=== PATIENT | male | born 1995 | race African-American/Black ===

== ENCOUNTER 2023-02-03 12:41 | Observation (INO) ==
--- NOTE | 2023-02-03 14:30 | DR.ABDMALE ---
HPI Time seen Time Seen by Provider: 02/03/23 14:30 PCP Primary Care Physician: nfd Complaint Chief Complaint:: Pt c/o "I feel like my appendix is about to bust". C/o RLQ pain started 0500 this AM, intermittently stops and restarts but now "is not stopping". Pt states he can't touch, hurts to sit, stand, "the worse thing I've ever felt". LBM this AM, denies urinary issues, pt c/o nausea but denies v/d COVID-19 Coronavirus risk:travel/contact w/high risk person: No Has patient experienced Coronavirus symptoms: No Source History provided by:: Patient Mode of arrival Mode of Arrival: Ambulatory Timing Onset of Chief Complaint: 02/03/23 PMH PMH Past Medical History: No Past Surgical History: No Family History History of Family Medical Conditions: Yes Family Medical History: Hypertension Social History Does patient currently use any type of tobacco product: Yes Have you used tobacco products in the last 12 months: Yes Type of Tobacco Use: Cigarettes Does any household member use tobacco: No Alcohol Use: None Do you use any recreational Drugs:: No Lives With: Family Lives Where: Home Travel Risk Coronavirus risk:travel/contact w/high risk person: No Has patient experienced Coronavirus symptoms: No Infectious screening In the last 2 months have you had wt loss of >10#?: NO Have you had fever, night sweats or hemotysis?: No Have you traveled outside the country in the last 6 months?: No Isolation: Standard PE Vital Signs Vital Signs: Temp Pulse Resp BP Pulse Ox O2 Del Method 02/03/23 12:42 98.4 F 87 20 123/77 97 Room Air ROR Labs Reviewed 02/03/23 14:16 02/03/23 14:16 Laboratory: WBC 17.3 X10^3/uL (3.6-10.0) H 02/03/23 14:16 RBC 5.49 X10^6/uL (4.7-6.0) 02/03/23 14:16 Hgb 14.1 g/dL (13.5-18.0) 02/03/23 14:16 Hct 44.3 % (42.0-54.0) 02/03/23 14:16 MCV 80.6 fL (80.0-100.0) 02/03/23 14:16 MCH 25.8 pg (27.0-34.0) L 02/03/23 14:16 MCHC 31.9 g/dL (33.0-35.0) L 02/03/23 14:16 RDW 14.2 % (11.6-16.5) 02/03/23 14:16 Plt Count 385 X10^3/uL (150.0-450.0) 02/03/23 14:16 MPV 7.5 fL (7.4-11.0) 02/03/23 14:16 Neut % (Auto) 82.7 % (42.0-75.0) H 02/03/23 14:16 Lymph % (Auto) 10.3 % (21.0-51.0) L 02/03/23 14:16 Norman % (Auto) 5.6 % (0.0-13.0) 02/03/23 14:16 Eos % (Auto) 1.2 % (0.9-2.9) 02/03/23 14:16 Baso % (Auto) 0.2 % (0.2-1.0) 02/03/23 14:16 Neut # (Auto) 14.3 x10^3/uL (2.2-4.8) H 02/03/23 14:16 Lymph # (Auto) 1.8 X10^3/uL (1.3-2.9) 02/03/23 14:16 Norman # (Auto) 1.0 x10^3/uL (0.3-0.8) H 02/03/23 14:16 Eos # (Auto) 0.2 x10^3/uL (0.0-0.2) 02/03/23 14:16 Baso # (Auto) 0.0 X10^3/uL (0.0-0.1) 02/03/23 14:16 Absolute Nucleated RBC 0.0 /100WBC 02/03/23 14:16 Sodium 143 mmol/L (136-145) 02/03/23 14:16 Corrected Sodium TNP 02/03/23 14:16 Potassium 3.5 mmol/L (3.5-5.1) 02/03/23 14:16 Chloride 107 mmol/L (98-107) 02/03/23 14:16 Carbon Dioxide 29.8 mmol/L (21-32) 02/03/23 14:16 BUN 10 mg/dL (7-18) 02/03/23 14:16 Creatinine 0.97 mg/dL (0.70-1.30) 02/03/23 14:16 Est GFR (MDRD) Af Amer > 60 (>60) 02/03/23 14:16 Est GFR (MDRD) Non-Af > 60 (>60) 02/03/23 14:16 Glucose 94 mg/dL (65-99) 02/03/23 14:16 Calcium 8.0 mg/dL (8.5-10.1) L 02/03/23 14:16 Corrected Calcium TNP 02/03/23 14:16 Total Bilirubin 0.60 mg/dL (0.2-1.0) 02/03/23 14:16 AST 25 Units/L (15-37) 02/03/23 14:16 ALT 27 Units/L (12-78) 02/03/23 14:16 Alkaline Phosphatase 77 Units/L (46-116) 02/03/23 14:16 Total Protein 7.4 g/dL (6.4-8.2) 02/03/23 14:16 Albumin 3.8 g/dL (3.4-5.0) 02/03/23 14:16 Globulin 3.6 g/dL (2.5-4.5) 02/03/23 14:16 Albumin/Globulin Ratio 1.1 Ratio (1.1-2.1) 02/03/23 14:16 Amylase 45 Units/L (25-115) 02/03/23 14:16 Lipase 34 Units/L (16-77) 02/03/23 14:16 Specimen Type Clean catch urine 02/03/23 14:33 Urine Color Yellow (YELLOW) 02/03/23 14:33 Urine Appearance Slightly hazy (CLEAR) 02/03/23 14:33 Urine pH 5.0 (5.0 - 8.0) 02/03/23 14:33 Ur Specific [place] 1.025 (1.000-1.030) 02/03/23 14:33 Urine Protein 1+ (NEGATIVE) 02/03/23 14:33 Urine Glucose (UA) Negative (NEGATIVE) 02/03/23 14:33 Urine Ketones Negative (NEGATIVE) 02/03/23 14:33 Urine Blood 1+ (NEGATIVE) 02/03/23 14:33 Urine Nitrite Negative (NEGATIVE) 02/03/23 14:33 Urine Bilirubin Negative (NEGATIVE) 02/03/23 14:33 Urine Urobilinogen Normal (NORMAL) 02/03/23 14:33 Ur Leukocyte Esterase 2+ (NEGATIVE) 02/03/23 14:33 Urine RBC 3-5 /HPF (0-3) A 02/03/23 14:33 Urine WBC 30-50 /HPF (0-5) A 02/03/23 14:33 Ur Squamous Epith Cells Negative /HPF (NEGATIVE) 02/03/23 14:33 Urine Bacteria 1+ /HPF (NEGATIVE) 02/03/23 14:33 Urine Mucus Many /HPF (NEGATIVE) 02/03/23 14:33 Ur Culture Indicated? Yes/culture set up 02/03/23 14:33 Opioid Opioid Risk Tool Age (Naif box if 16-45): Yes History of Preadolescent Sexual Abuse: No Total: 1 Total Score Risk Category: Low Risk Copyright: Wili KIRBY predicting aberrant behaviors Discharge Plan Discharge Plan Patient Disposition: 01 HOME, SELF-CARE Condition: Stable Prescriptions: No Action NK amoxicillin 875 mg tablet 875 mg PO BID Qty: 20 0RF diclofenac potassium 50 mg tablet 50 mg PO TID PRN (Reason: pain) Qty: 20 0RF sulfamethoxazole-trimethoprim [Bactrim DS] 800-160 mg tablet 1 tab PO BID Qty: 20 0RF Health Concerns: Post Hospitalization: new medications and changes needed to prevent readmission or further decline. Pt educated and given instructions on all concerns. Plan of Treatment: Continue with present treatment and follow up plan. Pt is to keep follow up appointment as instructed and take medications as ordered. Follow ups/Referrals Follow ups/Referrals: NFD,None [Primary Care Provider] - 3 days Instructions Stand Alone Forms: Post Hospital Follow Up Care
[2023-02-03 14:48] LABS: BASOPHILS % (AUTO) 0.2 % (0.2-1.0); EOSINOPHILS # (AUTO) 0.2 x10^3/uL (0.0-0.2); EOSINOPHILS % (AUTO) 1.2 % (0.9-2.9); HEMATOCRIT 44.3 % (42.0-54.0); HEMOGLOBIN 14.1 g/dL (13.5-18.0); LYMPHOCYTES # (AUTO) 1.8 X10^3/uL (1.3-2.9); LYMPHOCYTES % (AUTO) 10.3 % (21.0-51.0); MEAN CORPUSCULAR HEMOGLOBIN 25.8 pg (27.0-34.0); MEAN CORPUSCULAR HGB CONC 31.9 g/dL (33.0-35.0); MEAN CORPUSCULAR VOLUME 80.6 fL (80.0-100.0); MEAN PLATELET VOLUME 7.5 fL (7.4-11.0); MONOCYTES % (AUTO) 5.6 % (0.0-13.0); NEUTROPHILS # (AUTO) 14.3 x10^3/uL (2.2-4.8); NEUTROPHILS % (AUTO) 82.7 % (42.0-75.0); PLATELET COUNT 385 X10^3/uL (150.0-450.0); RED BLOOD COUNT 5.49 X10^6/uL (4.7-6.0); RED CELL DISTRIBUTION WIDTH 14.2 % (11.6-16.5); WHITE BLOOD COUNT 17.3 X10^3/uL (3.6-10.0)
[2023-02-03 14:52] LABS: BILIRUBIN,URINE NEGATIVE (NEGATIVE); BLOOD/HEMOGLOBIN,URINE 1+ (NEGATIVE); GLUCOSE, URINE NEGATIVE (NEGATIVE); KETONES,URINE NEGATIVE (NEGATIVE); LEUKOCYTE ESTERASE ,URINE 2+ (NEGATIVE); NITRITES,URINE NEGATIVE (NEGATIVE); PROTEIN,URINE 1+ (NEGATIVE); UROBILINOGEN,URINE NORMAL (NORMAL)
[2023-02-03 14:59] LABS: ALANINE AMINOTRANSFERASE 27 Units/L (12-78); ALBUMIN 3.8 g/dL (3.4-5.0); ALKALINE PHOSPHATASE 77 Units/L (46-116); AMYLASE 45 Units/L (25-115); ASPARTATE AMINO TRANSFERASE 25 Units/L (15-37); BLOOD UREA NITROGEN 10 mg/dL (7-18); CARBON DIOXIDE 29.8 mmol/L (21-32); CHLORIDE 107 mmol/L (98-107); CREATININE 0.97 mg/dL (0.70-1.30); GLUCOSE 94 mg/dL (65-99); LIPASE 34 Units/L (16-77); POTASSIUM 3.5 mmol/L (3.5-5.1); SODIUM 143 mmol/L (136-145); TOTAL PROTEIN 7.4 g/dL (6.4-8.2); eGFR NON BLACK RACES > 60 (>60)
[2023-02-03 15:07] LABS: APPEARANCE,URINE SLIGHTLY HAZY (CLEAR); COLOR,URINE YELLOW (YELLOW); SQUAMOUS EPITHELIAL CELL,UR NEGATIVE /HPF (NEGATIVE)
[2023-02-03 15:08] LABS: BACTERIA,URINE 1+ /HPF (NEGATIVE)
--- NOTE | 2023-02-03 15:50 | CT ---
EXAM: CT ABDOMEN AND PELVIS WITHOUT INTRAVENOUS CONTRASTHISTORY: Pain.TECHNIQUE: Spiral axial CT images are obtained through the abdomen and pelvis without the administration of intravenous contrast. Additional coronal and sagittal reformatted images are reconstructed.DOSIMETRY: Total DLP 456.52 mGycm; CTDI 8.38 mGyCOMPARISON: None available.FINDINGS:GASTROINTESTINAL TRACT: There is no evidence for bowel herniation, bowel obstruction, colitis or diverticulitis. Evidence for acute appendicitis, marked by a dilated (1.3 cm diameter), thickwalled, fluid-filled appendix with periappendiceal streaky inflammatory change. Axial image 53-65; coronal image 27-34. No drainable fluid collection, free air, or abscess formation seen.GENITOURINARY SYSTEM: The kidneys are unremarkable. There is no ureteral calculus or stigmata of obstructive uropathy. The urinary bladder, seminal vesicles, prostate gland appear grossly unremarkable for a non-dedicated exam.CT ABDOMEN: The liver, spleen, pancreas, adrenal glands, gallbladder, aorta, and inferior vena cava are within normal limits for a noncontrast CT scan. There is no intra-abdominal or retroperitoneal lymphadenopathy, free fluid, or free air seen. There is an approximately 2 cm AP by 1.8 cm CC by 1.8 cm transverse supraumbilical midline incisional hernia (approximately 4.8 cm above the umbilicus), containing uncomplicated omental flap. Axial image 45; sagittal image 33.CT PELVIS: No pelvic sidewall or inguinal lymphadenopathy is seen. No inguinal herniation is noted. No free fluid or free air is seen.BONES AND JOINTS: The visualized bony structures are within normal limits.LUNG BASES: The lung bases are clear.IMPRESSION:1. Acute appendicitis, marked by a dilated (1.3 cm diameter), thickwalled, fluid-filled appendix with periappendiceal streaky inflammatory change. Axial image 53-65; coronal image 27-34.2. No drainable fluid collection, free air, or abscess formation seen.3. Approximately 2 cm AP by 1.8 cm CC by 1.8 cm transverse supraumbilical midline incisional hernia (approximately 4.8 cm above the umbilicus), containing uncomplicated omental flap. Axial image 45; sagittal image 33.4. No evidence for renal stone disease or obstructive uropathy.5. No evidence for acute appendicitis, bowel herniation/obstruction, colitis or diverticulitis seen.6. No free fluid, free air, mass lesions, or lymphadenopathy seen.THIS IS AN ELECTRONICALLY VERIFIED FINAL [id number]/03/2023 3:48 PM - Electronically signed by Daniel Mackenzie
[2023-02-03] MEDS ORDERED: ZOFRAN INJ 4 MG VIAL IVP ONE (16:35)
[2023-02-03] MEDS ORDERED: MORPHINE SULFATE INJ 4 MG IVP ONE (16:35)
[2023-02-03] MEDS ORDERED: ZOSYN VIAL 3.375 GRAMS 3.375 G in NS 100 ML IV 100 ML IV ONE (16:37)
[2023-02-03] MEDS ORDERED: MORPHINE SULFATE INJ 4 MG ONE (16:45)
[2023-02-03] MEDS ORDERED: ZOFRAN INJ 4 MG VIAL ONE (16:45)
[2023-02-03] MEDS ORDERED: NS 100 ML IV 100 ML ONE (16:45)
[2023-02-03] MEDS ORDERED: ZOSYN VIAL 3.375 GRAMS IV ONE (16:45)
[2023-02-03] MEDS ORDERED: LR 1,000 ML IV 0 ML IV ONE (16:47)
[2023-02-03] MEDS ORDERED: VERSED ONE (16:49)
[2023-02-03] MEDS: ZOFRAN INJ 4 MG VIAL ONE ×2 (16:50→17:24)
[2023-02-03] MEDS ORDERED: DIPRIVAN VIAL 20 ML ONE (16:50)
[2023-02-03] MEDS ORDERED: OFIRMEV IV 1000 MG VIAL 1,000 MG/100 ML VIAL IV ONE (16:50)
[2023-02-03] MEDS ORDERED: TORADOL 30 MG VIAL ONE (16:50)
[2023-02-03] MEDS ORDERED: ZEMURON 100 MG VIAL ONE (16:50)
[2023-02-03] MEDS ORDERED: FENTANYL VIAL INJ 100 mcg ONE ×2 (16:50→17:44)
[2023-02-03] MEDS ORDERED: PEPCID 20 MG VIAL ONE (16:50)
[2023-02-03] MEDS ORDERED: BRIDION ONE (16:50)
[2023-02-03] MEDS ORDERED: LR 1,000 ML IV 1,000 ML IV ONE (16:55)
[2023-02-03] MEDS ORDERED: ZOFRAN INJ 4 MG VIAL IVP PRN ×2 (17:16→18:22)
[2023-02-03] MEDS ORDERED: REGLAN INJ 10 MG VIAL IVP PRN (17:16)
[2023-02-03] MEDS ORDERED: BARHEMSYS INJ IVP PRN (17:16)
[2023-02-03] MEDS ORDERED: BENADRYL INJ 50 MG VIAL IVP PRN (17:16)
[2023-02-03] MEDS ORDERED: XYLOCAINE 2 % (PLAIN) ONE (17:24)
[2023-02-03] MEDS ORDERED: SUPRANE ONE (17:24)
[2023-02-03] MEDS ORDERED: BACTROBAN TOPICAL OINT ONE (17:53)
[2023-02-03] MEDS ORDERED: DILAUDID INJ ONE (18:25)
[2023-02-03] MEDS: DILAUDID INJ IVP PRN ×3 (18:27→21:58)
[2023-02-03] MEDS ORDERED: CONSULT PHARMACY - POTASSIUM & MAGNESIUM XX SCH (19:00)
[2023-02-03 19:52] VITALS: BMI 33.1
[2023-02-03] MEDS: D5 1/2 NS 1,000 ML 1,000 ML IV SCH (20:33)
[2023-02-03] MEDS: ZOSYN VIAL 3.375 GRAMS 3.375 G in NS 100 ML IV 100 ML IV SCH (20:39)
[2023-02-03] MEDS: K-RIDER 10 MEQ/NS 100 ML 10 MEQ/100 ML BAG IV SCH ×2 (22:02→23:33)
[2023-02-04] MEDS: ZOSYN VIAL 3.375 GRAMS 3.375 G in NS 100 ML IV 100 ML IV SCH ×2 (02:15→05:45)
[2023-02-04] MEDS: D5 1/2 NS 1,000 ML 1,000 ML IV SCH (03:15)
[2023-02-04] MEDS: DILAUDID INJ IVP PRN (03:54)
[2023-02-04 05:53] LABS: BASOPHILS % (AUTO) 0.3 % (0.2-1.0); EOSINOPHILS # (AUTO) 0.3 x10^3/uL (0.0-0.2); EOSINOPHILS % (AUTO) 1.8 % (0.9-2.9); HEMATOCRIT 40.6 % (42.0-54.0); LYMPHOCYTES # (AUTO) 3.5 X10^3/uL (1.3-2.9); LYMPHOCYTES % (AUTO) 25.5 % (21.0-51.0); MEAN CORPUSCULAR HEMOGLOBIN 25.7 pg (27.0-34.0); MEAN CORPUSCULAR VOLUME 80.4 fL (80.0-100.0); MEAN PLATELET VOLUME 7.6 fL (7.4-11.0); MONOCYTES # (AUTO) 1.1 x10^3/uL (0.3-0.8); MONOCYTES % (AUTO) 7.8 % (0.0-13.0); NEUTROPHILS # (AUTO) 8.8 x10^3/uL (2.2-4.8); NEUTROPHILS % (AUTO) 64.6 % (42.0-75.0); PLATELET COUNT 365 X10^3/uL (150.0-450.0); RED BLOOD COUNT 5.05 X10^6/uL (4.7-6.0); RED CELL DISTRIBUTION WIDTH 14.2 % (11.6-16.5); WHITE BLOOD COUNT 13.6 X10^3/uL (3.6-10.0)
[2023-02-04 06:12] LABS: ALANINE AMINOTRANSFERASE 23 Units/L (12-78); ALBUMIN 3.2 g/dL (3.4-5.0); ALKALINE PHOSPHATASE 68 Units/L (46-116); ASPARTATE AMINO TRANSFERASE 19 Units/L (15-37); BLOOD UREA NITROGEN 7 mg/dL (7-18); CALCIUM 7.5 mg/dL (8.5-10.1); CARBON DIOXIDE 29.9 mmol/L (21-32); CHLORIDE 104 mmol/L (98-107); COR CA(FOR HYPOALB) 8.1 mg/dL (8.5-10.1); CREATININE 1.04 mg/dL (0.70-1.30); GLUCOSE 92 mg/dL (65-99); POTASSIUM 3.6 mmol/L (3.5-5.1); SODIUM 139 mmol/L (136-145); TOTAL PROTEIN 6.6 g/dL (6.4-8.2); eGFR NON BLACK RACES > 60 (>60)
[2023-02-04] MEDS ORDERED: CONSULT PHARMACY - POTASSIUM & MAGNESIUM XX SCH (07:00)
[2023-02-04] MEDS ORDERED: NORCO 5/325 MG TAB PO ONE (07:54)
[2023-02-04 08:29] VITALS: BP 129/78; PULSE 78; RESP 18; TEMP 98.2; O2SAT 99
[2023-02-04] MEDS ORDERED: K-RIDER 10 MEQ/NS 100 ML 10 MEQ/100 ML BAG IV SCH (09:00)
[2023-02-04] MEDS ORDERED: MAGNESIUM SULFATE 1 GRAM/100 mL PREMIX 1 G/100 ML BAG IV SCH (09:00)
== END 2023-02-04 08:50 | disposition home or self-care (01) ==
LOC: MED/SURG 12:41 → ER 12:41 → MED/SURG 17:02
PROVIDERS: ADMIT Surgery; ATTEND Surgery
PROC: APPYLAP (ICD-10-PCS; 2023-02-03 17:45)